=== PATIENT | female | born 1925 | race Caucasian/White ===

== ENCOUNTER 2016-12-14 19:41 | Inpatient (IN) | payer OTHER ==
[~2016-12-14] VITALS: Ht 149.9 cm; Wt 31.3 kg
[~2016-12-14 19:41] MED LIST: RISP1 PO; ZOLP10TA7 PO
[2016-12-14 20:21] LABS: MEAN CORPUSCULAR HGB CONC 30.6 G/dL (31.0-37.0); MEAN CORPUSCULAR VOLUME 62 fL (80-100); PLATELET COUNT (AUTO) 618 K/uL (150-450); RED BLOOD CELL COUNT(AUTO) 3.22 MIL/uL (4.00-5.20); RED CELL DISTRIBUTION WIDTH 19.8 % (11.5-14.5); WHITE BLOOD COUNT (AUTO) 11.1 K/uL (4.5-11.0)
[2016-12-14 20:33] LABS: HEMATOCRIT 20.1 % (36-46); HEMOGLOBIN 6.1 g/dL (12.0-16.0)
[2016-12-14 20:41] LABS: ALANINE AMINOTRANSFERASE 10 U/L (12-78); ANION GAP 7 mmol/L (8-16); ASPARTATE AMINOTRANSFERASE 16 U/L (15-37); BILIRUBIN,TOTAL 0.2 mg/dL (0.1-1.0); CALCIUM, TOTAL 7.8 mg/dL (8.8-10.5); CARBON DIOXIDE 31 mmol/L (22-29); CHLORIDE 104 mmol/L (98-107); CREATININE 0.83 mg/dL (0.60-1.30); GLOMERULAR FILTR. RATE CALC > 60 mL/min (>60); SODIUM SERUM 142 mmol/L (136-145); TOTAL PROTEIN, SERUM 6.5 g/dL (6.4-8.2); UREA NITROGEN, BLOOD 20 mg/dL (7-18)
[2016-12-14 20:48] LABS: INR 1.1 (0.9-1.1); PROTHROMBIN TIME 11.9 SEC (9.4-11.6)
[2016-12-14] MEDS ORDERED: ACETAMINOPHEN 325 MG TABLET PO ONE (21:30)
[2016-12-14] MEDS ORDERED: POTASSIUM CHLORIDE 20 MEQ ER TABLET PO ONE (21:30)
[2016-12-14] MEDS ORDERED: DiphenhydrAMINE HCL 50 MG/ML VIAL IVP ONE (21:30)
[2016-12-14] MEDS: FUROSEMIDE 20 MG/2 ML VIAL IVP ONE (21:42)
[2016-12-14] MEDS ORDERED: LIDOCAINE HCL 1% 20 ML VIAL INJ ONE (21:45)
[2016-12-14] MEDS ORDERED: PERTUSS(ACELL),DIPH,TET VAC/PF 0.5 ML VIAL IM ONE (21:45)
[2016-12-14] MEDS ORDERED: LIDOCAINE HCL 1% 10 ML VIAL INJ ONE (21:45)
[2016-12-14 22:05] LABS: LYMPHOCYTES % (MANUAL) 4 % (22-44); TOTAL CELLS COUNTED 100
[2016-12-14 22:06] LABS: RBC MORPHOLOGY COMMENT ABNORMAL R
[2016-12-14] MEDS ORDERED: SODIUM CHLORIDE 0.9% 250 ML IV ONE (22:12)
[2016-12-14] MEDS ORDERED: LORazepam 2 MG/ML VIAL IVP ONE (22:15)
[2016-12-14] MEDS ORDERED: HALOPERIDOL LACTATE 5 MG/ML VIAL IVP ONE (22:15)
[2016-12-14] MEDS ORDERED: ALBUTEROL SULFATE 2.5 MG/0.5 ML NEB SOLUTION NEB PRN (22:45)
[2016-12-14] MEDS ORDERED: ACETAMINOPHEN 325 MG TABLET PO PRN (22:45)
[2016-12-14] MEDS ORDERED: POTASSIUM CHL 10 MEQ/WATER 50 ML IV PRN (22:45)
[2016-12-14] MEDS ORDERED: POTASSIUM CHLORIDE 20 MEQ ER TABLET PO PRN (22:45)
[2016-12-14] MEDS ORDERED: MAGNESIUM HYDROXIDE SUSPENSION 30 ML UDCUP PO PRN (22:45)
[2016-12-14 23:05] LABS: THYROID STIMULATING HORMONE 7.53 uIU/mL (0.36-3.74)
[2016-12-14 23:09] LABS: APPEARANCE,URINE CLOUDY (CLEAR); GLUCOSE, URINE (UA) NEGATIVE (NEGATIVE); KETONES,URINE NEGATIVE (NEGATIVE); LEUKOCYTE ESTERASE ,URINE SMALL (NEGATIVE); OCCULT BLOOD,URINE NEGATIVE (NEGATIVE); PH,URINE 5.5 (5.0-8.0); PROTEIN,URINE POS 1+ (NEGATIVE)
[2016-12-14 23:15] VITALS: BP 100/60
[2016-12-14 23:19] LABS: RBC,URINE 0-2 /HPF (0-2); SQUAMOUS EPITHELIAL CELL,UR Few /LPF (None Seen)
[2016-12-14 23:30] VITALS: BP 98/53
[2016-12-14 23:45] VITALS: BP 104/57
[2016-12-15] VITALS (22 sets, daily range): BP systolic 92–124; BP diastolic 45–74
[2016-12-15] MEDS ORDERED: BACITRACIN 0.9 GM PACKET OINTMENT TP ONE
[2016-12-15] MEDS: FUROSEMIDE 20 MG/2 ML VIAL IVP ONE (02:58)
[2016-12-15] MEDS: MULTIVITAMINS WITH MINERALS, THERAPEUTIC TABLET PO SCH (09:00)
[2016-12-15] MEDS: DOCUSATE SODIUM 100 MG CAPSULE PO SCH ×2 (09:00→20:20)
[2016-12-15] MEDS: PANTOPRAZOLE SODIUM 40 MG/VIAL IVP SCH (09:32)
[2016-12-15 09:59] LABS: MEAN CORPUSCULAR HEMOGLOBIN 22.2 pg (26.0-34.0); MEAN CORPUSCULAR VOLUME 69 fL (80-100); PLATELET COUNT (AUTO) 494 K/uL (150-450); RED BLOOD CELL COUNT(AUTO) 4.03 MIL/uL (4.00-5.20); RED CELL DISTRIBUTION WIDTH 24.4 % (11.5-14.5); WHITE BLOOD COUNT (AUTO) 7.8 K/uL (4.5-11.0)
[2016-12-15 10:25] LABS: BAND NEUTROPHILS % (MANUAL) 10 % (1-5); LYMPHOCYTES % (MANUAL) 7 % (22-44); RBC MORPHOLOGY COMMENT ABNORMAL RBC MORPH; TOTAL CELLS COUNTED 100
[2016-12-15 11:22] LABS: GLUCOSE,POINT OF CARE 86 MG/DL (70-110)
[2016-12-16 00:12] VITALS: BP 123/83
[2016-12-16 03:41] VITALS: BP 128/81
[2016-12-16] MEDS ORDERED: POTASSIUM CHL 10 MEQ/WATER 50 ML IV PRN (05:15)
[2016-12-16] MEDS ORDERED: POTASSIUM CHLORIDE 10% 40 MEQ/30 ML LIQUID UDCUP PO PRN (05:15)
[2016-12-16 08:14] VITALS: BP 129/90
[2016-12-16] MEDS: PANTOPRAZOLE SODIUM 40 MG/VIAL IVP SCH (09:14)
[2016-12-16] MEDS: MULTIVITAMINS WITH MINERALS, THERAPEUTIC TABLET PO SCH (09:14)
[2016-12-16] MEDS: DOCUSATE SODIUM 100 MG CAPSULE PO SCH (09:14)
[2016-12-16 11:37] VITALS: BP 143/87
[2016-12-16 15:13] VITALS: BP 142/86
[2016-12-16] MEDS ORDERED: PANT40TA25 PO (16:26)
[2016-12-16] MEDS ORDERED: DSS100 PO (16:26)
[2016-12-16] MEDS ORDERED: FERR-89 PO (16:26)
[2016-12-16 19:24] VITALS: BP 138/87
== END 2016-12-16 19:30 | disposition home or self-care (01) | DRG 82 ==
LOC: EMS 19:42 → 5S 22:50
PROVIDERS: ADMIT Internal Medicine; ATTEND Internal Medicine
PROC: 30233N1 Transfusion of Nonautologous Red Blood Cells into Peripheral Vein, Percutaneous Approach (ICD-10-PCS; principal; 2016-12-14)
PROC: 0HQ0XZZ Repair Scalp Skin, External Approach (ICD-10-PCS; 2016-12-14)
DX: S06.5X9A Traumatic subdural hemorrhage with loss of consciousness of unspecified duration, initial encounter (principal); E43 Unspecified severe protein-calorie malnutrition; D64.9 Anemia, unspecified; F20.9 Schizophrenia, unspecified; F03.90 Unspecified dementia, unspecified severity, without behavioral disturbance, psychotic disturbance, mood disturbance, and anxiety; S01.81XA Laceration without foreign body of other part of head, initial encounter; B96.20 Unspecified Escherichia coli [E. coli] as the cause of diseases classified elsewhere; R64 Cachexia; Z68.1 Body mass index [BMI] 19.9 or less, adult; D50.9 Iron deficiency anemia, unspecified; W19.XXXA Unspecified fall, initial encounter; Y92.009 Unspecified place in unspecified non-institutional (private) residence as the place of occurrence of the external cause; Z66 Do not resuscitate; Z74.01 Bed confinement status; Y99.8 Other external cause status
CPT/HCPCS: 12013; 36430; 70450; 72125; 82271; 82306; 82728; 82962; 83540; 83550; 84132; 84443; 86850; 86900; 86901; 86920; 87086; 90471; 90715; 92610; 93005; 96374; 96375; 97161; 97530; 99291; C9113; J1200; J1630; J1940; J2060; J3490; J7050; P9016